=== PATIENT | female | born 1970 | race Caucasian/White ===

== ENCOUNTER → 2016-07-30 | Outpatient (CLI) | payer OTHER | LOC: MAMO 11:25 | DX: N64.89 Other specified disorders of breast (principal) | CPT/HCPCS: G0206 ==

== ENCOUNTER → 2021-03-17 | Outpatient (CLI) | payer BC, OTHER ==
[~2021-03-17] MED LIST: B COMPLEX1 EACH PO; LEVOTHYROXINE75 MCG PO; VITAMIN D1000 UNI1 PO
== END ==
LOC: KOH-I 11:10
DX: M25.562 Pain in left knee (principal); M25.561 Pain in right knee
CPT/HCPCS: 73562